=== PATIENT | male | born 1995 | race American Indian/Alaskan Native ===

== ENCOUNTER 2018-11-12 06:56 | Emergency (ER) | payer OTHER ==
[2018-11-12 07:12] VITALS: BP 133/80
[2018-11-12] MEDS ORDERED: TYLENOL PO ONE (07:25)
[2018-11-12] MEDS ORDERED: TYLENOL ONE (07:29)
[2018-11-12] MEDS ORDERED: BOOSTRIX IM ONE (09:25)
--- NOTE | 2018-11-12 09:25 | Emergency Department Report ---
ED Laceration HPI - HPI Chief Complaint: Wound/Laceration Stated Complaint: LACERTATION TO FINGER Time Seen by Provider: 11/12/18 09:18 Occurred When: Yesterday Location: Upper Extremity (left index finger) Severity: mild Tetanus Status: Not up to Date Laceration Symptoms: Yes Pain, No Foreign Body Sensation, No Numbness, No Weakness Other History: Patient reports he accidentally cut his left index finger on a clean razor while at work yesterday around 1500 ED Review of Systems ROS: Stated complaint: LACERTATION TO FINGER Other details as noted in HPI Constitutional: denies: chills, fever Eyes: denies: eye pain, eye discharge, vision change ENT: denies: ear pain, throat pain Respiratory: denies: cough, shortness of breath, wheezing Cardiovascular: denies: chest pain, palpitations Endocrine: no symptoms reported Gastrointestinal: denies: abdominal pain, nausea, diarrhea Genitourinary: denies: urgency, dysuria Musculoskeletal: denies: back pain, joint swelling, arthralgia Skin: other (laceration left index finger). denies: rash, lesions Neurological: denies: headache, weakness, paresthesias Psychiatric: denies: anxiety, depression Hematological/Lymphatic: denies: easy bleeding, easy bruising ED Past Medical Hx - Past Medical History Previous Medical History?: No - Surgical History Past Surgical History?: No - Social History Smoking Status: Current Every Day Smoker - Medications Home Medications: Home Medications Medication Instructions Recorded Confirmed Last Taken Type Ibuprofen 800 mg PO TID #30 tablet 11/12/18 Unknown Rx Laceration Physical Exam - Exam General: Vital signs noted. No distress. Alert and acting appropriately. Wound Length (cm): 1 Laceration Location: Upper Extremity (left proximal index finger) Laceration Exam: Yes Normal Distal CMS, No Foreign Body, No Exposed Tendon, Vessel, or Nerve, No Tendon Injury ED Course Vital Signs 11/12/18 11/12/18 07:10 07:30 Temperature 98.1 F Pulse Rate 65 Respiratory 16 18 Rate Blood Pressure 133/80 O2 Sat by Pulse 100 Oximetry - Reevaluation(s) Reevaluation #1: 11/12/18 09:21 Wound care and steri-strips applied ED Medical Decision Making - Lab Data Temp Pulse Resp BP Pulse Ox 98.1 F 65 18 133/80 100 11/12/18 07:10 11/12/18 07:10 11/12/18 07:30 11/12/18 07:10 11/12/18 07:10 - Medical Decision Making During the course of ED, Boostrix, wound care and steri-strips were applied to the 1 cm superficial laceration noted to left proximal index finger. The incident occurred 18 hours therefore the wound did not meet criteria for suture repair. Patient was sent home with prescription for Ibuprofen, instructed to keep the wound clean with antibacterial soap, dry and covered. He verbalized understanding - Differential Diagnosis Laceration, Abrasion Critical care attestation.: If time is entered above; I have spent that time in minutes in the direct care of this critically ill patient, excluding procedure time. ED Disposition Clinical Impression: Laceration Disposition: DC-01 TO HOME OR SELFCARE Is pt being admited?: No Does the pt Need Aspirin: No Condition: Stable Instructions: Skin Adhesive Care (ED) Additional Instructions: Take medication as directed. Keep the wound clean with antibacterial soap, dry and covered. Return back to the ED for worsening symptoms or concerns Prescriptions: Ibuprofen 800 mg PO TID #30 tablet Referrals: PRIMARY CARE, [Primary Care Provider] - 3-5 Days Time of Disposition: 09:28
== END 2018-11-12 09:41 | disposition home or self-care (01) ==
LOC: ED 06:56
DX: S61.211A Laceration without foreign body of left index finger without damage to nail, initial encounter (principal); F17.200 Nicotine dependence, unspecified, uncomplicated; W45.8XXA Other foreign body or object entering through skin, initial encounter; Y93.89 Activity, other specified; Y92.89 Other specified places as the place of occurrence of the external cause; Y99.8 Other external cause status
CPT/HCPCS: 90471; 90715